=== PATIENT | male | born 1985 | race African-American/Black ===

== ENCOUNTER 2021-07-17 08:10 | Emergency (ER) | payer OTHER ==
[~2021-07-17] VITALS: Ht 185.4 cm; Wt 97.0 kg
[2021-07-17 08:18] VITALS: BP 135/83
== END 2021-07-17 09:24 | disposition home or self-care (01) ==
LOC: ER 08:36
DX: L72.3 Sebaceous cyst (principal)
CPT/HCPCS: 99281